=== PATIENT | male | born 1965 | race Hispanic/Latino ===

== ENCOUNTER 2017-11-12 17:21 | Emergency (ER) | payer OTHER ==
[2017-11-12 17:26] VITALS: RESP 16; TEMP 98.6; O2SAT 99
--- NOTE | 2017-11-12 17:43 | ED PDOC ---
HPI: Psych/Substance Abuse Time Seen by Provider: 11/12/17 17:34 Chief Complaint (Nursing): Alcohol Ingestion Chief Complaint (Provider): ETOH abuse History Per: Patient History/Exam Limitations: no limitations Onset/Duration Of Symptoms: Hrs Current Symptoms Are (Timing): Still Present Modifying Factor(s): Alcohol Additional Complaint(s): 52 yo male with no medical problems presents after drinking alcohol today at home. Pt states he does not know why his family called police. Pt reports drinking alcohol today. Pt states he does not drink everyday and never has. Pt denies drug use. Past Medical History Reviewed: Historical Data, Nursing Documentation, Vital Signs Vital Signs: Last Vital Signs Temp 98.6 F 11/12/17 17:25 Pulse 109 H 11/12/17 17:25 Resp 16 11/12/17 17:25 BP 118/73 11/12/17 17:25 Pulse Ox 99 11/12/17 17:25 - Medical History PMH: Anxiety, Kidney Stones, Chronic Kidney Disease Denies: HIV - Surgical History Surgical History: No Surg Hx - Family History Family History: States: No Known Family Hx - Living Arrangements Living Arrangements: With Family - Social History Current smoker - smoking cessation education provided: No Alcohol: Occasional Drugs: Denies - Home Medications Home Medications: Ambulatory Orders Medication Instructions Recorded Folic Acid 1 mg PO DAILY #30 tab 12/29/15 MetFORMIN ER [Glucophage XR] 500 mg PO DAILY #0 ter 12/29/15 Thiamine [Vitamin B-1] 100 mg PO DAILY #30 tab 12/29/15 - Allergies Allergies/Adverse Reactions: Allergies Allergy/AdvReac Type Severity Reaction Status Date / Time No Known Allergies Allergy Verified 11/12/17 17:26 Review of Systems ROS Statement: Except As Marked, All Systems Reviewed And Found Negative Constitutional: Negative for: Fever, Chills Cardiovascular: Negative for: Chest Pain Respiratory: Negative for: Cough, Shortness of Breath Gastrointestinal: Negative for: Nausea, Vomiting, Abdominal Pain Psych: Negative for: Suicidal ideation, Withdrawal Physical Exam - Reviewed Nursing Documentation Reviewed: Yes Vital Signs Reviewed: Yes - Physical Exam Appears: Positive for: Well, Non-toxic, No Acute Distress Head Exam: Positive for: ATRAUMATIC, NORMAL INSPECTION, NORMOCEPHALIC Skin: Positive for: Normal Color, Warm, DRY Eye Exam: Positive for: Normal appearance, EOMI, PERRL ENT: Positive for: Normal ENT Inspection Neck: Positive for: Normal, Painless ROM Cardiovascular/Chest: Positive for: Regular Rate, Rhythm Respiratory: Positive for: Normal Breath Sounds. Negative for: Accessory Muscle Use, Respiratory Distress Back: Positive for: Normal Inspection Extremity: Positive for: Normal ROM Neurologic/Psych: Positive for: Alert, Oriented - Laboratory Results Result Diagrams: 11/12/17 18:01 11/12/17 18:01 - ECG O2 Sat by Pulse Oximetry: 99 Pulse Ox Interpretation: Normal Medical Decision Making Medical Decision Makin - Clear speech and steady gait. Disposition - Clinical Impression Clinical Impression: Alcohol abuse with intoxication - Patient ED Disposition Is Patient to be Admitted: No Counseled Patient/Family Regarding: Diagnosis, Need For Followup - Disposition Disposition: Routine/Home Disposition Time: 20:30 Condition: STABLE Instructions: Alcohol Abuse and Alcoholism (DC) Forms: [facility] (Omani)
[2017-11-12 18:07] LABS: BASO % 0.4 % (0.0-2.0); EOS # 0.1 K/uL (0.0-0.7); EOS % 1.3 % (0.0-4.0); HEMOGLOBIN 15.8 g/dL (12.0-18.0); LYMPH # 1.5 K/uL (1.0-4.3); LYMPH % 24.9 % (20.0-40.0); MEAN CELL VOLUME 93.3 fl (80.0-94.0); MEAN CORPUSCULAR HEMOGLOBIN 31.7 pg (27.0-31.0); MEAN PLATELET VOLUME 7.9 fl (7.2-11.7); MONO # 0.6 K/uL (0.0-0.8); MONO % 9.7 % (0.0-10.0); NEUT % 63.7 % (50.0-75.0); NRBC % 0.1 % (0.0-0.0); RED CELL DISTRIBUTION WIDTH 12.7 % (11.5-14.5); WHITE BLOOD COUNT 6.2 K/uL (4.8-10.8)
[2017-11-12 18:16] LABS: ALB/GLOB RATIO 1.1 (1.0-2.1); ALBUMIN 4.2 g/dL (3.5-5.0); ALT/SGPT 63 U/L (21-72); AST/SGOT 84 U/L (17-59); BLOOD UREA NITROGEN 8 mg/dl (9-20); CALCIUM 8.7 mg/dL (8.4-10.2); GFR AFRICAN-AMERICAN > 60; GFR NON-AFRICAN AMERICAN > 60
[2017-11-12 20:51] VITALS: BP 128/84; PULSE 90
== END 2017-11-12 20:50 | disposition home or self-care (01) ==
LOC: H.ER 17:21
DX: F10.10 Alcohol abuse, uncomplicated (principal)

== ENCOUNTER 2017-11-19 04:02 | Emergency (ER) | payer OTHER ==
[2017-11-19 04:14] VITALS: BMI 25.0
[2017-11-19] MEDS ORDERED: Sodium Chloride 0.9% 1,000 ML IV STA (04:32)
--- NOTE | 2017-11-19 04:59 | ED PDOC ---
HPI: Psych/Substance Abuse Time Seen by Provider: 11/19/17 04:20 Chief Complaint (Nursing): Psychiatric Evaluation Chief Complaint (Provider): Psychiatric Evaluation History Per: Patient History/Exam Limitations: no limitations Current Symptoms Are (Timing): Still Present Modifying Factor(s): Alcohol Associated Symptoms: Suicidal Thoughts Additional Complaint(s): 52 year old male brought in by [facility] presents to ED with complaints of depression and suicidal ideation and has a past medical history of diabetes and alcohol abuse. Patient denies having suicidal ideation but states that he has been drinking cooking wine and vinegar earlier. (-) auditory/ visual hallucinations. PCP: non CPH Past Medical History Reviewed: Historical Data, Nursing Documentation, Vital Signs Vital Signs: Last Vital Signs Temp 98.7 F 11/19/17 04:14 Pulse 133 H 11/19/17 04:14 Resp 18 11/19/17 04:14 BP 142/96 H 11/19/17 04:14 Pulse Ox 96 11/19/17 04:14 - Medical History PMH: Anxiety, Kidney Stones, Chronic Kidney Disease Denies: HIV - Family History Family History: States: Unknown Family Hx - Social History Current smoker - smoking cessation education provided: Yes Ex-Smoker (has not smoked in the last 12 months): No Alcohol: Other ((+) drinker) Drugs: Denies - Home Medications Home Medications: Ambulatory Orders Medication Instructions Recorded No Known Home Med 11/19/17 - Allergies Allergies/Adverse Reactions: Allergies Allergy/AdvReac Type Severity Reaction Status Date / Time No Known Allergies Allergy Verified 11/19/17 04:13 Review of Systems ROS Statement: Except As Marked, All Systems Reviewed And Found Negative Psych: Positive for: Depression, Suicidal ideation. Negative for: Psychosis ((- ) auditory or visual hallucinations) Physical Exam - Reviewed Nursing Documentation Reviewed: Yes Vital Signs Reviewed: Yes - Physical Exam Appears: Positive for: Non-toxic, No Acute Distress Head Exam: Positive for: ATRAUMATIC, NORMAL INSPECTION, NORMOCEPHALIC Skin: Positive for: Normal Color, Warm, Dry Eye Exam: Positive for: EOMI, Normal appearance, PERRL ENT: Positive for: Normal ENT Inspection Neck: Positive for: Normal, Painless ROM Cardiovascular/Chest: Positive for: Regular Rate, Rhythm, Tachycardia Respiratory: Positive for: Normal Breath Sounds. Negative for: Respiratory Distress Gastrointestinal/Abdominal: Positive for: Normal Exam, Soft. Negative for: Tenderness Extremity: Positive for: Normal ROM. Negative for: Deformity Neurologic/Psych: Positive for: Alert, Oriented. Negative for: Motor/Sensory Deficits - Laboratory Results Result Diagrams: 11/19/17 04:46 - ECG ECG: Positive for: Interpreted By Me, Viewed By Me ECG Rhythm: Positive for: Normal QRS, Normal ST Segment, Sinus Tachycardia Rate: 104 (04:52 11/19/2017) O2 Sat by Pulse Oximetry: 96 (RA) Pulse Ox Interpretation: Normal Medical Decision Making Medical Decision Makin Initial impression: 52 year old male with suicidal ideation in setting of alcohol abuse Initial plan: * EKG * Acetaminophen * EtOH serum * Labs * UDrug screen * Lipase * Salicylate * Erythrocyte sedimentation rate * PTT/PT * NS IV * Zofran Inj 4mg IV * 1:1 OBS * Accucheck * Re-eval 0700 Patient will be signed out to Dr. Mohan pending labs, re-evaluation, and crisis. Scribe Attestation: Documented by Bia León acting as a scribe for To Tariq MD. Scribe Attestation: All medical record entries made by the Scribe were at my direction and personally dictated by me. I have reviewed the chart and agree that the record accurately reflects my personal performance of the history, physical exam, medical decision making, and the department course for this patient. I have also personally directed, reviewed, and agree with the discharge instructions and disposition. Disposition - Clinical Impression Clinical Impression: Alcohol abuse with intoxication - Patient ED Disposition Is Patient to be Admitted: Transfer of Care - Disposition Disposition: Transfer of Care Disposition Time: 07:00 Condition: STABLE Forms: [facility] (Syriac) Patient Signed Over To: Frances Mohan Handoff Comments: pending labs, re-eval, and crisis
[2017-11-19 05:07] LABS: ALB/GLOB RATIO 1.2 (1.0-2.1); ALBUMIN 4.6 g/dL (3.5-5.0); ALT/SGPT 87 U/L (21-72); AST/SGOT 122 U/L (17-59); BLOOD UREA NITROGEN 16 mg/dl (9-20); CALCIUM 8.6 mg/dL (8.4-10.2); GFR AFRICAN-AMERICAN > 60; GFR NON-AFRICAN AMERICAN > 60; LIPASE 190 U/L (23-300)
[2017-11-19 05:30] LABS: ACETAMINOPHEN < 10.0 ug/ml (10.0-30.0); SALICYLATE < 1.0 mg/dl
[2017-11-19 05:37] LABS: INR 1.3 (0.9-1.2)
[2017-11-19 06:02] LABS: BASO # 0.1 K/uL (0.0-0.2); BASO % 0.5 % (0.0-2.0); EOS % 0.3 % (0.0-4.0); HEMOGLOBIN 16.7 g/dL (12.0-18.0); LYMPH # 1.7 K/uL (1.0-4.3); LYMPH % 15.8 % (20.0-40.0); MEAN CELL VOLUME 93.6 fl (80.0-94.0); MEAN CORPUSCULAR HEMOGLOBIN 32.6 pg (27.0-31.0); MEAN CORPUSCULAR HGB CONC 34.8 g/dL (33.0-37.0); MEAN PLATELET VOLUME 7.2 fl (7.2-11.7); MONO # 0.6 K/uL (0.0-0.8); MONO % 5.8 % (0.0-10.0); NEUT # 8.1 K/uL (1.8-7.0); NEUT % 77.6 % (50.0-75.0); RBC 5.13 Mil/uL (4.40-5.90); RED CELL DISTRIBUTION WIDTH 13.1 % (11.5-14.5); WHITE BLOOD COUNT 10.5 K/uL (4.8-10.8)
[2017-11-19 07:38] LABS: BARBITURATES, UR NEGATIVE (NEGATIVE); BENZODIAZEPINES, UR POSITIVE (NEGATIVE); OPIATES, UR NEGATIVE (NEGATIVE); PHENCYCLIDINE, UR NEGATIVE (NEGATIVE)
[2017-11-19 07:55] VITALS: RESP 18; O2SAT 100
--- NOTE | 2017-11-19 10:43 | ED PDOC ---
- Laboratory Results Result Diagrams: 11/19/17 05:00 11/19/17 04:46 - ECG O2 Sat by Pulse Oximetry: 100 Medical Decision Making Medical Decision Making: patient endorsed by Dr. Tariq. Patient is seen by bridge gang worker and cleared for discharge. Disposition Doctor Will See Patient In The: Office - Clinical Impression Clinical Impression: Alcohol abuse with intoxication, Alcohol dependence - POA Present On Arrival: None - Disposition Disposition: Routine/Home Disposition Time: 10:20 Condition: STABLE Instructions: Polysubstance Abuse Forms: [employer] [facility] (German)
--- NOTE | 2017-11-19 11:03 | CARD ---
APPROVED REPORT EKG Measurement Heart [id number] <Conclusion> Sinus tachycardia Nonspecific intraventricular block Abnormal ECG
[2017-11-19 11:07] VITALS: BP 128/80; PULSE 87; TEMP 97.8
== END 2017-11-19 11:06 | disposition home or self-care (01) ==
LOC: H.ER 04:02
DX: F10.129 Alcohol abuse with intoxication, unspecified (principal)
CPT/HCPCS: 80053; 80320; 80324; 80329; 80345; 80346; 80349; 80353; 80358; 80361; 82948; 83690; 83992; 85025; 85610; 85651; 85730; 93005; 96374; 96375; 96376; 99283; J2060; J2405; J7030

== ENCOUNTER 2017-11-28 05:04 | Inpatient (IN) | payer OTHER ==
[2017-11-28 05:04] VITALS: BMI 25.0
--- NOTE | 2017-11-28 06:07 | ED PDOC ---
HPI: Psych/Substance Abuse Time Seen by Provider: 11/28/17 05:22 Chief Complaint (Nursing): Chest Pain Chief Complaint (Provider): Chest Pain History Per: Patient History/Exam Limitations: no limitations Onset/Duration Of Symptoms: Days Current Symptoms Are (Timing): Still Present Associated Symptoms: Anxiety Additional Complaint(s): 52 y/o male with a PMHx of depression presents to the ED with chest pain and depression. Patient is not sure how long symptoms have been going on. Patient has not slept for approximately 12 days. Patient now reports of hearing voices and seeing things. Additionally, patient reports of chest pain located in the middle of his chest. Denies suicidal or homicidal ideation. PMD: None Provided Past Medical History Reviewed: Historical Data, Nursing Documentation, Vital Signs Vital Signs: Last Vital Signs Temp 99.6 F 11/28/17 05:18 Pulse 98 H 11/28/17 05:18 Resp 16 11/28/17 05:18 BP 129/90 11/28/17 05:18 Pulse Ox 97 11/28/17 05:18 - Medical History PMH: Anxiety, Diverticulitis, Kidney Stones, Chronic Kidney Disease Denies: Diabetes, Hepatitis, HIV, HTN, Seizures, Sexually Transmitted Disease - Surgical History Surgical History: No Surg Hx - Family History Family History: States: Unknown Family Hx - Home Medications Home Medications: Ambulatory Orders Medication Instructions Recorded No Known Home Med 11/19/17 - Allergies Allergies/Adverse Reactions: Allergies Allergy/AdvReac Type Severity Reaction Status Date / Time No Known Allergies Allergy Verified 11/28/17 05:17 Review of Systems ROS Statement: Except As Marked, All Systems Reviewed And Found Negative Cardiovascular: Positive for: Chest Pain Psych: Positive for: Depression Physical Exam - Reviewed Nursing Documentation Reviewed: Yes Vital Signs Reviewed: Yes - Physical Exam Appears: Positive for: No Acute Distress (anxious) Head Exam: Positive for: ATRAUMATIC, NORMOCEPHALIC Skin: Positive for: Normal Color, Warm, Dry Eye Exam: Positive for: EOMI, Normal appearance, PERRL ENT: Positive for: Normal ENT Inspection Neck: Positive for: Normal, Painless ROM Cardiovascular/Chest: Positive for: Regular Rate, Rhythm Respiratory: Positive for: Normal Breath Sounds. Negative for: Respiratory Distress Gastrointestinal/Abdominal: Positive for: Normal Exam, Soft. Negative for: Tenderness Back: Positive for: Normal Inspection Extremity: Positive for: Normal ROM. Negative for: Deformity Neurologic/Psych: Positive for: Alert, Oriented. Negative for: Motor/Sensory Deficits - Laboratory Results Result Diagrams: 11/28/17 06:45 11/28/17 06:45 - ECG O2 Sat by Pulse Oximetry: 97 (RA) Pulse Ox Interpretation: Normal Medical Decision Making Medical Decision Making: Time: 558 Impression: depression and chest pain Differentials include but not limited to ACS and bipolar disorder Plan: -- EKG -- Alcohol Serum -- BMP -- CMP -- Urine Drug Screen -- Troponin I -- CBC with differentials -- Ativan 2 mg PO -- Auto Seat Cover Installer -- IV Insertion -- 1:1 Observation -- Urinalysis Scribe Attestation: Documented by Kalani Nickerson acting as a scribe for Dr. Dimas Henley MD. Provider Scribe Attestation: All medical record entries made by the Scribe were at my direction and personally dictated by me. I have reviewed the chart and agree that the record accurately reflects my personal performance of the history, physical exam, medical decision making, and the department course for this patient. I have also personally directed, reviewed, and agree with the discharge instructions and disposition. Disposition - Clinical Impression Clinical Impression: Alcohol dependence, Hypokalemia, Depression, Chest pain - Patient ED Disposition Is Patient to be Admitted: Transfer of Care Doctor Will See Patient In The: Office Counseled Patient/Family Regarding: Studies Performed, Diagnosis, Need For Followup - Disposition Disposition Time: 07:00 Condition: FAIR Patient Signed Over To: Frances Mohan
[2017-11-28 06:53] LABS: BASO % 0.7 % (0.0-2.0); EOS % 1.2 % (0.0-4.0); HEMOGLOBIN 12.9 g/dL (12.0-18.0); LYMPH # 0.7 K/uL (1.0-4.3); MEAN CELL VOLUME 92.3 fl (80.0-94.0); MEAN CORPUSCULAR HGB CONC 34.7 g/dL (33.0-37.0); MEAN PLATELET VOLUME 8.3 fl (7.2-11.7); MONO # 0.2 K/uL (0.0-0.8); NEUT # 1.7 K/uL (1.8-7.0); NEUT % 62.1 % (50.0-75.0); RBC 4.02 Mil/uL (4.40-5.90); WHITE BLOOD COUNT 2.7 K/uL (4.8-10.8)
[2017-11-28 07:26] LABS: BLOOD UREA NITROGEN 4 mg/dl (9-20); GFR AFRICAN-AMERICAN > 60; GFR NON-AFRICAN AMERICAN > 60
[2017-11-28 07:27] LABS: ALB/GLOB RATIO 1.3 (1.0-2.1); ALBUMIN 3.6 g/dL (3.5-5.0); AST/SGOT 402 U/L (17-59); CALCIUM 7.8 mg/dL (8.4-10.2)
[2017-11-28 07:28] LABS: ALT/SGPT 140 U/L (21-72)
--- NOTE | 2017-11-28 08:15 | ED PDOC ---
- Laboratory Results Result Diagrams: 11/28/17 06:45 11/28/17 06:45 - ECG O2 Sat by Pulse Oximetry: 97 (RA) Medical Decision Making Medical Decision Making: received patient endorsement from Dr. Henley. Patient with c/o auditory and visual hallucinations, not sleeping for 15 days. self medicating with alcohol. placed on 1:1 for flight risk. patient seen by crisis. Although he does not meet criteria for psych admission, he will be admitted for him to get sep up for the needed services for him Disposition Doctor Will See Patient In The: Hospital - Clinical Impression Clinical Impression: Alcohol dependence, Hypokalemia - POA Present On Arrival: None - Disposition Disposition: Transfer of Care Disposition Time: 11:15 Condition: FAIR Forms: [facility] (Central African)
[2017-11-28 08:45] LABS: URINE BILIRUBIN NEGATIVE (NEGATIVE); URINE BLOOD NEGATIVE (NEGATIVE); URINE CLARITY SLIGHTY-CLOUDY (Clear); URINE COLOR YELLOW (YELLOW); URINE GLUCOSE (UA) 50 mg/dL (Normal); URINE LEUKOCYTE ESTERASE NEG Leu/uL (Negative); URINE PROTEIN NEGATIVE (NEGATIVE)
[2017-11-28 09:34] LABS: BANDS 2 % (0-2); EOSINOPHIL 2 % (0-7); LYMPHOCYTE 25 % (20-50); MONOCYTE 2 % (0-10); NEUTROPHIL 69 % (42-75); TOTAL CELLS COUNTED 100
[2017-11-28 09:37] LABS: ANISOCYTOSIS SLIGHT; LARGE PLATELETS PRESENT; PLATELET ESTIMATE DECREASED (NORMAL)
[2017-11-28 09:41] LABS: PLATELET COUNT 41 K/uL (130-400)
[2017-11-28 09:43] LABS: BARBITURATES, UR NEGATIVE (NEGATIVE); BENZODIAZEPINES, UR POSITIVE (NEGATIVE); OPIATES, UR NEGATIVE (NEGATIVE); PHENCYCLIDINE, UR NEGATIVE (NEGATIVE)
--- NOTE | 2017-11-28 15:57 | CP.PCM.CON ---
History of Present Illness - History of Present Illness History of Present Illness: Psychiatry consult note Patient seen and evaluated by crisis today and found to not meet criteria for psychiatric admission at this time. Patient's primary complaint is alcohol withdrawal and insomnia. NO AH/VH/SI/HI. Patient has capacity to make medical decisions. Diagnosis: Alcohol Use Disorder Recommendation: -Alcohol withdrawal treatment as per [facility] protocol -Psychoeducation provided to the patient that his sleep cycle may not improve for several days to weeks due to chronic alcohol abuse -Can start Trazodone 50 mg PO HS -Thiamine and Folate replacement Past Patient History - Infectious Disease Hx of Infectious Diseases: None - Past Medical History & Family History Past Medical History?: Yes - Past Social History Smoking Status: Never Smoked - CARDIAC Hx Hypertension: No - PULMONARY Hx Tuberculosis: No - NEUROLOGICAL Hx Seizures: No - HEENT Hx HEENT Problems: Yes Other/Comment: DEVIATED SEPTUM - RENAL Hx Chronic Kidney Disease: Yes Hx Kidney Stones: Yes - ENDOCRINE/METABOLIC Hx Endocrine Disorders: No - HEMATOLOGICAL/ONCOLOGICAL Hx Human Immunodeficiency Virus (HIV): No - INTEGUMENTARY Hx Dermatological Problems: No - MUSCULOSKELETAL/RHEUMATOLOGICAL Hx Musculoskeletal Disorders: No Hx Falls: No Other/Comment: LEFT ELBOW SURGERY 1993 - GASTROINTESTINAL Hx Diverticulitis: Yes - GENITOURINARY/GYNECOLOGICAL Hx Sexually Transmitted Disorders: No - PSYCHIATRIC Hx Anxiety: Yes Hx Substance Use: Yes (COCAINE SNIFF) - SURGICAL HISTORY Hx Surgeries: Yes Other/Comment: colon resection- diverticulitis - ANESTHESIA Hx Anesthesia: Yes Hx Anesthesia Reactions: No Hx Malignant Hyperthermia: No Meds Allergies/Adverse Reactions: Allergies Allergy/AdvReac Type Severity Reaction Status Date / Time No Known Allergies Allergy Verified 11/28/17 05:17 - Medications Medications: Current Medications Lorazepam (Ativan) 0.5 mg IVP Q6 PRN PRN Reason: tremors Results - Vital Signs Recent Vital Signs: Last Vital Signs Temp 98.1 F 11/28/17 10:58 Pulse 81 11/28/17 10:58 Resp 16 11/28/17 10:58 BP 135/80 11/28/17 10:58 Pulse Ox 97 11/28/17 11:51 - Labs Result Diagrams: 11/28/17 06:45 11/28/17 06:45 Labs: Laboratory Results - last 24 hr 11/28/17 11/28/17 11/28/17 06:45 06:45 08:28 WBC 2.7 L D RBC 4.02 L Hgb 12.9 D Hct 37.1 MCV 92.3 MCH 32.0 H MCHC 34.7 RDW 13.0 Plt Count 41 L D MPV 8.3 Neut % (Auto) 62.1 Lymph % (Auto) 27.0 [place] % (Auto) 9.0 Eos % (Auto) 1.2 Baso % (Auto) 0.7 Neut # (Auto) 1.7 L Lymph # (Auto) 0.7 L [place] # (Auto) 0.2 Eos # (Auto) 0.0 Baso # (Auto) 0.0 Neutrophils % (Manual) 69 Band Neutrophils % 2 Lymphocytes % (Manual) 25 Monocytes % (Manual) 2 Eosinophils % (Manual) 2 Platelet Estimate Decreased L Large Platelets Present Anisocytosis (manual) Slight Sodium 144 Potassium 3.0 L Chloride 105 Carbon Dioxide 24 Anion Gap 18 BUN 4 L Creatinine 0.7 L Est GFR ( Amer) > 60 Est GFR (Non-Af Amer) > 60 Random Glucose 159 H Calcium 7.8 L Total Bilirubin 1.7 H AST 402 H D ALT 140 H D Alkaline Phosphatase 57 Troponin I 0.0450 Total Protein 6.4 Albumin 3.6 Globulin 2.8 Albumin/Globulin Ratio 1.3 Urine Color Urine Clarity Urine pH Ur Specific [place] Urine Protein Urine Glucose (UA) Urine Ketones Urine Blood Urine Nitrate Urine Bilirubin Urine Urobilinogen Ur Leukocyte Esterase Urine RBC (Auto) Urine Microscopic WBC Urine Opiates Screen Negative Urine Methadone Screen Negative Ur Barbiturates Screen Negative Ur Phencyclidine Scrn Negative Ur Amphetamines Screen Negative U Benzodiazepines Scrn Positive U Oth Cocaine Metabols Negative U Cannabinoids Screen Negative Alcohol, Quantitative 226 H 11/28/17 08:32 WBC RBC Hgb Hct MCV MCH MCHC RDW Plt Count MPV Neut % (Auto) Lymph % (Auto) [place] % (Auto) Eos % (Auto) Baso % (Auto) Neut # (Auto) Lymph # (Auto) [place] # (Auto) Eos # (Auto) Baso # (Auto) Neutrophils % (Manual) Band Neutrophils % Lymphocytes % (Manual) Monocytes % (Manual) Eosinophils % (Manual) Platelet Estimate Large Platelets Anisocytosis (manual) Sodium Potassium Chloride Carbon Dioxide Anion Gap BUN Creatinine Est GFR ( Amer) Est GFR (Non-Af Amer) Random Glucose Calcium Total Bilirubin AST ALT Alkaline Phosphatase Troponin I Total Protein Albumin Globulin Albumin/Globulin Ratio Urine Color Yellow Urine Clarity Slighty-cloudy Urine pH 6.0 Ur Specific [place] 1.015 Urine Protein Negative Urine Glucose (UA) 50 Urine Ketones Trace Urine Blood Negative Urine Nitrate Negative Urine Bilirubin Negative Urine Urobilinogen 4.0 Ur Leukocyte Esterase Neg Urine RBC (Auto) 5 H Urine Microscopic WBC 1 Urine Opiates Screen Urine Methadone Screen Ur Barbiturates Screen Ur Phencyclidine Scrn Ur Amphetamines Screen U Benzodiazepines Scrn U Oth Cocaine Metabols U Cannabinoids Screen Alcohol, Quantitative
--- NOTE | 2017-11-28 16:11 | CP.PCM.HP ---
<Shireen Marquez - Last Filed: 11/28/17 17:34> History of Present Illness - History of Present Illness History of Present Illness: 52 yo male who denies known medical hx presented to ED with complaint of chest pain, insomnia, stating he has not slept in 12-14 days and has been drinking 1 bottle of tequila a night to help him fall asleep, but states "my brain won't stop." States he is "very sick," and thinks he has diabetes from drinking alcohol. Has had multiple ED visits for EtOH abuse in the past week both here and at other hospitals, has been reported to have been drinking vinegar and cooking wine as well. Pt is a poor historian and has fixated thoughts on being "very sick" but does not provide more detail. Alcohol level in ED > 200; intoxicated. Evaluated by crisis - does not meet inpt psych criteria. Present on Admission - Present on Admission Any Indicators Present on Admission: No Review of Systems - Review of Systems Systems not reviewed;Unavailable: Intoxicated Past Patient History - Infectious Disease Hx of Infectious Diseases: None - Past Medical History & Family History Past Medical History?: Yes - Past Social History Smoking Status: Never Smoked - CARDIAC Hx Hypertension: No - PULMONARY Hx Tuberculosis: No - NEUROLOGICAL Hx Seizures: No - HEENT Hx HEENT Problems: Yes Other/Comment: DEVIATED SEPTUM - RENAL Hx Chronic Kidney Disease: Yes Hx Kidney Stones: Yes - ENDOCRINE/METABOLIC Hx Endocrine Disorders: No - HEMATOLOGICAL/ONCOLOGICAL Hx Human Immunodeficiency Virus (HIV): No - INTEGUMENTARY Hx Dermatological Problems: No - MUSCULOSKELETAL/RHEUMATOLOGICAL Hx Musculoskeletal Disorders: No Hx Falls: No Other/Comment: LEFT ELBOW SURGERY 1993 - GASTROINTESTINAL Hx Diverticulitis: Yes - GENITOURINARY/GYNECOLOGICAL Hx Sexually Transmitted Disorders: No - PSYCHIATRIC Hx Anxiety: Yes Hx Substance Use: Yes (COCAINE SNIFF) - SURGICAL HISTORY Hx Surgeries: Yes Other/Comment: colon resection- diverticulitis - ANESTHESIA Hx Anesthesia: Yes Hx Anesthesia Reactions: No Hx Malignant Hyperthermia: No Meds Allergies/Adverse Reactions: Allergies Allergy/AdvReac Type Severity Reaction Status Date / Time No Known Allergies Allergy Verified 11/28/17 05:17 Physical Exam - Constitutional Appears: Unkempt Additional comments: intoxicated - Head Exam Head Exam: ATRAUMATIC - Eye Exam Eye Exam: Normal appearance - ENT Exam ENT Exam: Mucous Membranes Moist - Respiratory Exam Respiratory Exam: Clear to Auscultation Bilateral, NORMAL BREATHING PATTERN - Cardiovascular Exam Cardiovascular Exam: REGULAR RHYTHM - GI/Abdominal Exam GI & Abdominal Exam: Normal Bowel Sounds, Soft - Extremities Exam Extremities exam: Negative for: calf tenderness, pedal edema - Neurological Exam Neurological exam: Alert - Psychiatric Exam Psychiatric exam: Anxious, Depressed Results - Vital Signs Recent Vital Signs: Last Vital Signs Temp 98.1 F 11/28/17 10:58 Pulse 81 11/28/17 10:58 Resp 16 11/28/17 10:58 BP 135/80 11/28/17 10:58 Pulse Ox 97 11/28/17 11:51 - Labs Result Diagrams: 11/28/17 06:45 11/28/17 06:45 Labs: Laboratory Results - last 24 hr 11/28/17 11/28/17 11/28/17 06:45 06:45 08:28 WBC 2.7 L D RBC 4.02 L Hgb 12.9 D Hct 37.1 MCV 92.3 MCH 32.0 H MCHC 34.7 RDW 13.0 Plt Count 41 L D MPV 8.3 Neut % (Auto) 62.1 Lymph % (Auto) 27.0 Giles % (Auto) 9.0 Eos % (Auto) 1.2 Baso % (Auto) 0.7 Neut # (Auto) 1.7 L Lymph # (Auto) 0.7 L Giles # (Auto) 0.2 Eos # (Auto) 0.0 Baso # (Auto) 0.0 Neutrophils % (Manual) 69 Band Neutrophils % 2 Lymphocytes % (Manual) 25 Monocytes % (Manual) 2 Eosinophils % (Manual) 2 Platelet Estimate Decreased L Large Platelets Present Anisocytosis (manual) Slight Sodium 144 Potassium 3.0 L Chloride 105 Carbon Dioxide 24 Anion Gap 18 BUN 4 L Creatinine 0.7 L Est GFR ( Amer) > 60 Est GFR (Non-Af Amer) > 60 Random Glucose 159 H Calcium 7.8 L Total Bilirubin 1.7 H AST 402 H D ALT 140 H D Alkaline Phosphatase 57 Troponin I 0.0450 Total Protein 6.4 Albumin 3.6 Globulin 2.8 Albumin/Globulin Ratio 1.3 Urine Color Urine Clarity Urine pH Ur Specific [place] Urine Protein Urine Glucose (UA) Urine Ketones Urine Blood Urine Nitrate Urine Bilirubin Urine Urobilinogen Ur Leukocyte Esterase Urine RBC (Auto) Urine Microscopic WBC Urine Opiates Screen Negative Urine Methadone Screen Negative Ur Barbiturates Screen Negative Ur Phencyclidine Scrn Negative Ur Amphetamines Screen Negative U Benzodiazepines Scrn Positive U Oth Cocaine Metabols Negative U Cannabinoids Screen Negative Alcohol, Quantitative 226 H 11/28/17 08:32 WBC RBC Hgb Hct MCV MCH MCHC RDW Plt Count MPV Neut % (Auto) Lymph % (Auto) Giles % (Auto) Eos % (Auto) Baso % (Auto) Neut # (Auto) Lymph # (Auto) Giles # (Auto) Eos # (Auto) Baso # (Auto) Neutrophils % (Manual) Band Neutrophils % Lymphocytes % (Manual) Monocytes % (Manual) Eosinophils % (Manual) Platelet Estimate Large Platelets Anisocytosis (manual) Sodium Potassium Chloride Carbon Dioxide Anion Gap BUN Creatinine Est GFR ( Amer) Est GFR (Non-Af Amer) Random Glucose Calcium Total Bilirubin AST ALT Alkaline Phosphatase Troponin I Total Protein Albumin Globulin Albumin/Globulin Ratio Urine Color Yellow Urine Clarity Slighty-cloudy Urine pH 6.0 Ur Specific [place] 1.015 Urine Protein Negative Urine Glucose (UA) 50 Urine Ketones Trace Urine Blood Negative Urine Nitrate Negative Urine Bilirubin Negative Urine Urobilinogen 4.0 Ur Leukocyte Esterase Neg Urine RBC (Auto) 5 H Urine Microscopic WBC 1 Urine Opiates Screen Urine Methadone Screen Ur Barbiturates Screen Ur Phencyclidine Scrn Ur Amphetamines Screen U Benzodiazepines Scrn U Oth Cocaine Metabols U Cannabinoids Screen Alcohol, Quantitative Assessment & Plan (1) Alcohol abuse with intoxication Status: Acute (2) Chest pain Status: Acute (3) Hypokalemia Status: Acute (4) Elevated liver enzymes Status: Acute - Assessment and Plan (Free Text) Plan: - admit tele - serial troponins Q8 - CIWA protocol, librium Q6 PRN - replete K with kriders and PO - banana bag - f/u BMP - f/u CBC, coag studies - psychiatry and psychology eval - SCDs <Parish Traore - Last Filed: 11/30/17 18:21> Results - Vital Signs Recent Vital Signs: Last Vital Signs Temp 98.5 F 11/30/17 16:03 Pulse 84 11/30/17 16:03 Resp 17 11/30/17 16:03 BP 101/72 11/30/17 16:03 Pulse Ox 97 11/30/17 16:03 - Labs Result Diagrams: 11/30/17 07:15 11/30/17 07:15 Labs: Laboratory Results - last 24 hr 11/30/17 11/30/17 07:15 07:15 WBC 3.4 L RBC 4.01 L Hgb 13.1 Hct 37.0 MCV 92.2 MCH 32.7 H MCHC 35.5 RDW 12.8 Plt Count 41 L Sodium 136 Potassium 3.3 L Chloride 98 Carbon Dioxide 27 Anion Gap 14 BUN 8 L Creatinine 0.7 L Est GFR ( Amer) > 60 Est GFR (Non-Af Amer) > 60 Random Glucose 200 H Calcium 8.5 Assessment & Plan (1) Alcohol dependence Status: Acute (2) Depression Status: Acute (3) Elevated liver enzymes Status: Acute (4) Hypokalemia Status: Acute (5) Alcohol abuse with intoxication Status: Acute (6) Alcohol withdrawal Status: Acute (7) Hyperglycemia Status: Acute - Assessment and Plan (Free Text) Plan: I was present during evlauation and discussed with Dr Marquez re plans of care and tx. Parish Traore M.D.
[2017-11-28] MEDS ORDERED: Potassium Chloride 20 mEq 100 ML ONE (16:14)
[2017-11-28] MEDS: Potassium Chloride 20 mEq 100 ML IVPB SCH ×3 (16:17→20:34)
[2017-11-28] MEDS ORDERED: Potassium Chloride 20 mEq ER Tab PO ONE ×2 (17:09→17:58)
[2017-11-28] MEDS ORDERED: Multivitamin (MVI) 10 ML, Thiamine 100 MG, Folic Acid 1 MG in Sodium Chloride 0.9% 1,00... IV ONE (17:12)
[2017-11-28 17:23] LABS: INR 1.5 (0.9-1.2); PARTIAL THROMBOPLASTIN TIME 29.4 Seconds (25.6-37.1); PROTHROMBIN TIME 16.5 Seconds (9.8-13.1)
[2017-11-28] MEDS ORDERED: Potassium Chloride 20 mEq ER Tab PO STA (21:08)
[2017-11-29 06:12] LABS: BASO % 0.5 % (0.0-2.0); EOS # 0.1 K/uL (0.0-0.7); EOS % 1.7 % (0.0-4.0); HEMOGLOBIN 12.8 g/dL (12.0-18.0); LYMPH % 24.4 % (20.0-40.0); MEAN CELL VOLUME 92.3 fl (80.0-94.0); MEAN CORPUSCULAR HEMOGLOBIN 32.6 pg (27.0-31.0); MEAN CORPUSCULAR HGB CONC 35.3 g/dL (33.0-37.0); MEAN PLATELET VOLUME 9.4 fl (7.2-11.7); MONO # 0.3 K/uL (0.0-0.8); MONO % 7.1 % (0.0-10.0); NEUT # 2.6 K/uL (1.8-7.0); NEUT % 66.3 % (50.0-75.0); NRBC % 0.1 % (0.0-0.0); RBC 3.93 Mil/uL (4.40-5.90); RED CELL DISTRIBUTION WIDTH 13.1 % (11.5-14.5)
[2017-11-29 06:27] LABS: ALB/GLOB RATIO 1.3 (1.0-2.1); ALBUMIN 3.6 g/dL (3.5-5.0); ALT/SGPT 139 U/L (21-72); AST/SGOT 292 U/L (17-59); BLOOD UREA NITROGEN 6 mg/dl (9-20); CALCIUM 7.7 mg/dL (8.4-10.2); GFR AFRICAN-AMERICAN > 60; GFR NON-AFRICAN AMERICAN > 60
[2017-11-30 08:10] LABS: HEMOGLOBIN 13.1 g/dL (12.0-18.0); MEAN CELL VOLUME 92.2 fl (80.0-94.0); MEAN CORPUSCULAR HEMOGLOBIN 32.7 pg (27.0-31.0); MEAN CORPUSCULAR HGB CONC 35.5 g/dL (33.0-37.0); RBC 4.01 Mil/uL (4.40-5.90); RED CELL DISTRIBUTION WIDTH 12.8 % (11.5-14.5); WHITE BLOOD COUNT 3.4 K/uL (4.8-10.8)
[2017-11-30 08:32] LABS: BLOOD UREA NITROGEN 8 mg/dl (9-20); CALCIUM 8.5 mg/dL (8.4-10.2); GFR AFRICAN-AMERICAN > 60; GFR NON-AFRICAN AMERICAN > 60
[2017-11-30] MEDS ORDERED: Potassium Chloride 20 mEq ER Tab PO ONE (08:59)
--- NOTE | 2017-11-30 18:14 | CP.PCM.PN ---
Subjective - Date & Time of Evaluation Date of Evaluation: 11/29/17 Time of Evaluation: 08:30 - Subjective Subjective: Patient feels very weak, Repeat labs showed decrease in AST ALT levels. Has poor appetite Claims that he gets no support from , children and mother. He stays with his father. Objective - Vital Signs/Intake and Output Vital Signs (last 24 hours): Temp Pulse Resp BP Pulse Ox 98.5 F 84 17 101/72 97 11/30/17 16:03 11/30/17 16:03 11/30/17 16:03 11/30/17 16:03 11/30/17 16:03 - Medications Medications: Current Medications Chlordiazepoxide (Librium) 50 mg PO Q4 DEDRA Last Admin: 11/30/17 17:15 Dose: 50 mg Lorazepam (Ativan) 1 mg IVP Q8 PRN PRN Reason: Agitation Last Admin: 11/29/17 20:02 Dose: 1 mg Trazodone HCl (Desyrel) 50 mg PO HS DEDRA Last Admin: 11/29/17 21:44 Dose: 50 mg - Labs Labs: 11/30/17 07:15 11/30/17 07:15 PT 16.5 Seconds (9.8-13.1) H 11/28/17 16:41 INR 1.5 (0.9-1.2) H 11/28/17 16:41 APTT 29.4 Seconds (25.6-37.1) 11/28/17 16:41 - Head Exam Head Exam: NORMAL INSPECTION - Eye Exam Eye Exam: Normal appearance - Respiratory Exam Respiratory Exam: Clear to Ausculation Bilateral - Cardiovascular Exam Cardiovascular Exam: REGULAR RHYTHM - GI/Abdominal Exam GI & Abdominal Exam: Normal Bowel Sounds - Neurological Exam Neurological Exam: Oriented x3 - Psychiatric Exam Psychiatric exam: Depressed - Skin Skin Exam: Normal Color Assessment and Plan (1) Alcohol dependence Status: Acute (2) Depression Status: Acute (3) Elevated liver enzymes Status: Acute (4) Hypokalemia Status: Acute (5) Alcohol abuse with intoxication Status: Acute (6) Alcohol withdrawal Status: Acute (7) Hyperglycemia Status: Acute - Assessment and Plan (Free Text) Plan: Cont meds check a1c advised hydration cont meds cont one to one observation encourage ambulation ativan for dt sx.
--- NOTE | 2017-11-30 18:20 | CP.PCM.PN ---
Subjective - Date & Time of Evaluation Date of Evaluation: 11/30/17 Time of Evaluation: 14:00 - Subjective Subjective: Patient claims that he feels a lot better and desires to go home. Still on one to one. Psych has maintained that there is no need for inpatient tx. Has fair appetite. Noted persistent hypokalemia Noted elevated FBS. No A1c Objective - Vital Signs/Intake and Output Vital Signs (last 24 hours): Temp Pulse Resp BP Pulse Ox 98.5 F 84 17 101/72 97 11/30/17 16:03 11/30/17 16:03 11/30/17 16:03 11/30/17 16:03 11/30/17 16:03 - Medications Medications: Current Medications Chlordiazepoxide (Librium) 50 mg PO Q4 DEDRA Last Admin: 11/30/17 17:15 Dose: 50 mg Lorazepam (Ativan) 1 mg IVP Q8 PRN PRN Reason: Agitation Last Admin: 11/29/17 20:02 Dose: 1 mg Trazodone HCl (Desyrel) 50 mg PO HS DEDRA Last Admin: 11/29/17 21:44 Dose: 50 mg - Labs Labs: 11/30/17 07:15 11/30/17 07:15 PT 16.5 Seconds (9.8-13.1) H 11/28/17 16:41 INR 1.5 (0.9-1.2) H 11/28/17 16:41 APTT 29.4 Seconds (25.6-37.1) 11/28/17 16:41 - Head Exam Head Exam: NORMAL INSPECTION - Eye Exam Eye Exam: Normal appearance - ENT Exam ENT Exam: Mucous Membranes Moist - Respiratory Exam Respiratory Exam: Clear to Ausculation Bilateral - Cardiovascular Exam Cardiovascular Exam: REGULAR RHYTHM - GI/Abdominal Exam GI & Abdominal Exam: Normal Bowel Sounds - Neurological Exam Neurological Exam: CN II-XII Intact, Oriented x3 - Psychiatric Exam Psychiatric exam: Depressed - Skin Skin Exam: Normal Color Assessment and Plan (1) Alcohol dependence Status: Acute (2) Depression Status: Acute (3) Elevated liver enzymes Status: Acute (4) Hypokalemia Status: Acute (5) Alcohol abuse with intoxication Status: Acute (6) Alcohol withdrawal Status: Acute (7) Hyperglycemia Status: Acute - Assessment and Plan (Free Text) Plan: cont meds cont hydration Phys therapy OOB Dc one to one. plan to Dc in am check A1c cmp in AM
[2017-12-01 04:45] VITALS: TEMP 98.6
[2017-12-01 05:25] LABS: HEMOGLOBIN 12.9 g/dL (12.0-18.0); MEAN CELL VOLUME 94.2 fl (80.0-94.0); MEAN CORPUSCULAR HEMOGLOBIN 32.5 pg (27.0-31.0); MEAN CORPUSCULAR HGB CONC 34.5 g/dL (33.0-37.0); RBC 3.98 Mil/uL (4.40-5.90); RED CELL DISTRIBUTION WIDTH 13.1 % (11.5-14.5); WHITE BLOOD COUNT 3.5 K/uL (4.8-10.8)
[2017-12-01 05:39] LABS: LDL CHOLESTEROL 68 mg/dL (0-129)
[2017-12-01 06:02] LABS: ALB/GLOB RATIO 1.2 (1.0-2.1); ALBUMIN 3.7 g/dL (3.5-5.0); ALT/SGPT 138 U/L (21-72); AST/SGOT 204 U/L (17-59); BLOOD UREA NITROGEN 9 mg/dl (9-20); CALCIUM 8.9 mg/dL (8.4-10.2); GFR AFRICAN-AMERICAN > 60; GFR NON-AFRICAN AMERICAN > 60; HDL CHOLESTEROL 51 MG/DL (30-70)
[2017-12-01 08:10] VITALS: BP 112/76; PULSE 107; RESP 20; O2SAT 94
[2017-12-01] MEDS ORDERED: Potassium Chloride 20 mEq ER Tab PO ONE (09:45)
--- NOTE | 2017-12-01 11:08 | CP.PCM.PCO ---
Assessment/Plan - Assessment and Plan (Free Text) Assessment: Patient seen and examined this morning , with Dr Eugenie RUSH, alert awake oriented no tremors, no shortness of breath, no signs of withdrawal denies nausea vomiting Patient ambulated, steady gait. Follow up with PMD in 1 week SW to provide alcohol cessation for outpt followup
--- NOTE | 2017-12-01 11:24 | CARD ---
APPROVED REPORT EKG Measurement Heart [id number] <Conclusion> Normal sinus rhythm Left axis deviation Left bundle branch block Abnormal ECG
== END 2017-12-01 11:40 | disposition home or self-care (01) | DRG 897 ==
LOC: H.ER 05:04 → H.ERHOLD 11:47 → H.TEL 18:32
PROVIDERS: ADMIT Family Medicine; ATTEND Family Medicine
DX: F10.239 Alcohol dependence with withdrawal, unspecified (principal); F32.89 Other specified depressive episodes; E87.6 Hypokalemia; G47.00 Insomnia, unspecified; J34.2 Deviated nasal septum; N18.9 Chronic kidney disease, unspecified; Z87.442 Personal history of urinary calculi; F10.229 Alcohol dependence with intoxication, unspecified; Y90.7 Blood alcohol level of 200-239 mg/100 ml; R73.9 Hyperglycemia, unspecified; Z90.49 Acquired absence of other specified parts of digestive tract

== ENCOUNTER 2018-01-08 10:43 | Emergency (ER) | payer OTHER ==
[2018-01-08 10:43] VITALS: BMI 25.0
[2018-01-08 10:50] VITALS: BP 111/77; PULSE 106; TEMP 97; O2SAT 96
--- NOTE | 2018-01-08 11:35 | ED PDOC ---
HPI: Psych/Substance Abuse Time Seen by Provider: 01/08/18 10:52 Chief Complaint (Nursing): Alcohol Ingestion Chief Complaint (Provider): Alcohol abuse History Per: Patient History/Exam Limitations: no limitations Onset/Duration Of Symptoms: Days Current Symptoms Are (Timing): Still Present Additional Complaint(s): 53 yo male brought in by EMS for evaluation of alcohol intoxication. Pt states he drank 1 bottle of wine today. Pt states that he has been drinking daily for 40 days. Pt denies complaints. Clear speech on arrival. Past Medical History Reviewed: Historical Data, Nursing Documentation, Vital Signs Vital Signs: Last Vital Signs Temp 97 F L 01/08/18 10:55 Pulse 106 H 01/08/18 10:55 Resp BP 111/77 01/08/18 10:55 Pulse Ox 96 01/08/18 10:55 - Medical History PMH: Anxiety, Diverticulitis, Kidney Stones, Chronic Kidney Disease Denies: Diabetes, Hepatitis, HIV, HTN, Seizures, Sexually Transmitted Disease - Surgical History Surgical History: Appendectomy - Family History Family History: States: Unknown Family Hx - Living Arrangements Living Arrangements: With Family - Social History Current smoker - smoking cessation education provided: No Alcohol: > 2 Drinks/Day Drugs: Denies - Immunization History Hx Tetanus Toxoid Vaccination: No Hx Influenza Vaccination: No Hx Pneumococcal Vaccination: No - Home Medications Home Medications: Ambulatory Orders Medication Instructions Recorded No Known Home Med 12/16/17 - Allergies Allergies/Adverse Reactions: Allergies Allergy/AdvReac Type Severity Reaction Status Date / Time No Known Allergies Allergy Verified 12/17/17 21:49 Review of Systems ROS Statement: Except As Marked, All Systems Reviewed And Found Negative Constitutional: Negative for: Fever, Chills Cardiovascular: Negative for: Chest Pain, Palpitations Respiratory: Negative for: Cough, Shortness of Breath Physical Exam - Reviewed Nursing Documentation Reviewed: Yes Vital Signs Reviewed: Yes - Physical Exam Appears: Positive for: Well, Non-toxic, No Acute Distress Head Exam: Positive for: ATRAUMATIC, NORMAL INSPECTION, NORMOCEPHALIC Skin: Positive for: Normal Color, Warm, DRY Eye Exam: Positive for: Normal appearance ENT: Positive for: Normal ENT Inspection Neck: Positive for: Normal, Painless ROM Cardiovascular/Chest: Positive for: Regular Rate, Rhythm Respiratory: Positive for: Normal Breath Sounds. Negative for: Accessory Muscle Use, Respiratory Distress Back: Positive for: Normal Inspection Extremity: Positive for: Normal ROM Neurologic/Psych: Positive for: Alert, Oriented - ECG O2 Sat by Pulse Oximetry: 96 Medical Decision Making Medical Decision Making: Pt states he does not want to stay in the ER. Pt with steady gait. Disposition - Clinical Impression Clinical Impression: Alcohol abuse - Patient ED Disposition Is Patient to be Admitted: No Counseled Patient/Family Regarding: Diagnosis, Need For Followup - Disposition Referrals: [facility] [place] [facility] [Outside] Disposition: Routine/Home Disposition Time: 11:33 Condition: STABLE Instructions: Alcohol Abuse and Alcoholism (DC)
[2018-01-08 11:36] VITALS: RESP 16
== END 2018-01-08 12:07 | disposition home or self-care (01) ==
LOC: H.ER 10:43
DX: F10.129 Alcohol abuse with intoxication, unspecified (principal)